=== PATIENT | female | born 1960 | race Caucasian/White ===

== ENCOUNTER 2023-01-11 20:18 | Emergency (ER) | payer MEDICAID ==
[~2023-01-11] VITALS: Ht 162.6 cm; Wt 59.0 kg
[2023-01-11 20:23] VITALS: BP 140/90; PULSE 78; RESP 6; TEMP 98.5; O2SAT 99
[2023-01-11] MEDS ORDERED: HYDR-4001 MT (21:51)
== END 2023-01-11 22:40 | disposition home or self-care (01) ==
LOC: ER 20:36
DX: S20.212A Contusion of left front wall of thorax, initial encounter (principal); S05.12XA Contusion of eyeball and orbital tissues, left eye, initial encounter; I10 Essential (primary) hypertension; V49.9XXA Car occupant (driver) (passenger) injured in unspecified traffic accident, initial encounter; Y93.89 Activity, other specified; Y92.89 Other specified places as the place of occurrence of the external cause; Y99.8 Other external cause status
CPT/HCPCS: 71045; 73030; 99284